=== PATIENT | male | born 2000 | race Caucasian/White ===

== ENCOUNTER 2024-05-31 22:05 | Emergency (ER) | payer BC, OTHER, SELFPAY ==
[2024-05-31 22:08] VITALS: BP 127/80
--- NOTE | 2024-05-31 23:28 | ED.SKININJ ---
HPI-Injury
General
Chief Complaint: Skin Problem
Source: patient
Exam Limitations: none
Time Seen by Provider: 05/31/24 22:12
Nursing documentation reviewed up to this point in time: agreed with
History of Present Illness-Injury
Is this injury a work related problem?: No
Is pt an associate of [facility]?: No
Initial Injury comments:
Hit with puck while playing ice hockey. Sustained a small laceration to left cheek. Injury occurred just [employer]
Past History
Past History
ED Past Medical History: None
ED Past Surgical History: None
Review of Systems
Review of Systems
Allergies reviewed?: Yes
All Other Systems: ROS reviewed and negative except as documented in HPI and ROS
Constitutional: Reports no symptoms
EENT: Reports no symptoms
Musculoskeletal: Reports no symptoms
Skin: Reports other (small laceration to left cheek)
Neurological: Reports no symptoms
Psychiatric: Reports no symptoms
Skin Exam
Laceration
Left Cheek:
Length in cm: 1
Orientation: horizontal
Type of Laceration: simple
Any active bleeding?: no active bleeding
Distal skin color and temperature: normal-warm & good color
Normal distal neurovascular exam: Yes
Range of motion: full
Phy Exam
General Physical Exam
General Presentation: well appearing and no apparent distress
General age: appears stated age
General Skin: warm and dry
General Habitus: normal
General Mental: alert
Neurological Exam
Neurological Exam: alert, oriented x3, CN II-XII intact, no motor deficits, no sensory deficits, speech normal and normal gait
Musculoskeletal Exam
Musculoskeletal Exam: full ROM, neuro vasc intact and other (Full nonpainful ROM to jaw. )
Skin Exam
Skin Exam: normal color, warm/dry and no rash
Psychiatric Exam
Psychiatric Exam: normal mood/affect
Course
Vital Signs
Initial and Last Documented VS:
Initial Vital Signs
Temp Pulse Resp BP Pulse Ox
98.5 F 85 20 127/80 99
05/31/24 22:08 05/31/24 22:08 05/31/24 22:08 05/31/24 22:08 05/31/24 22:08
Last Documented Vital Signs
Temp Pulse Resp BP Pulse Ox
98.5 F 85 20 127/80 99
05/31/24 22:08 05/31/24 22:08 05/31/24 22:08 05/31/24 22:08 05/31/24 22:08
Procedures
Laceration Closure
Left Cheek:
Status of Wound: clean
Description of Wound Edges: sharp
Preparation: cleaned with saline
Anesthesia: 1% Lidocaine
Revision/Debridement: routine- no revision
Wound exploration: explored to base- no FB
Type of Closure: single layer closure
Skin Closure Material: 6-0 prolene
*Critical Care Note
Total Time (30-74mins, 75-104mins- exclusive of procedures): Not Applicable
ED Attending Note
-
Portions of this chart may have been created with voice recognition software.� Occasional wrong word or��sound alike� substitutions may have occurred due to the inherent limitations of voice recognition software.
Discharge Plan
Departure
Patient Disposition: Home (Routine Discharge)
Date of Disposition: 05/31/24
Time of Disposition: 22:38
Patient with high blood pressure during this ER visit?: No
Condition: Good
Covid-19: Not Applicable
Discharge Problem:
Face lacerations
Instructions: Using Cold for Pain, Laceration Repair With Stitches ED
Prescriptions:
No Action
insulin asp prt-insulin aspart [Novolog Mix 70-30FlexPen U-100] 300 UNITS/3 ML insulin pen
0 - 15 units SC AC
Patient Comments:
sliding scale
insulin detemir U-100 [Levemir FlexTouch U100 Insulin] 300 UNIT/3 ML insulin pen
31 unit SC QPM
Multivitamin
1 tab PO DAILY
Activity Restrictions/Additional Instructions:
Sutures can be removed in 5-7 days by your family doctor.
Interventions
Interventions:
*Risk Screen - Suicide Last Done: 05/31/24 22:08
*General Assessment Last Done: 05/31/24 22:08
*Neglect/Abuse Screening Last Done: 05/31/24 22:08
ED- Fall Risk Assessment Last Done: 05/31/24 22:08
*ED COVID-19 Vaccine History Last Done: 05/31/24 22:08
*Nursing Disposition Last Done: 05/31/24 23:14
ED-Skin Assessment Last Done: 05/31/24 22:08
Discharge Date and Time
Discharge Date/Time: 05/31/24 23:15
Print Language: PUERTO RICAN
== END 2024-05-31 23:15 | disposition home or self-care (01) ==
LOC: EMR 22:05
PROVIDERS: EMERGENCY PHYSICIAN Emergency Medicine; FAMILY PHYSICIAN Family Medicine
DX: S01.412A Laceration without foreign body of left cheek and temporomandibular area, initial encounter (principal); W22.8XXA Striking against or struck by other objects, initial encounter; Y93.22 Activity, ice hockey
CPT/HCPCS: 99282; 12011